=== PATIENT | male | born 1960 ===

== ENCOUNTER 2016-12-20 11:44 | Emergency (ER) | payer OTHER ==
[2016-12-20 12:06] VITALS: RESP 16; TEMP 99; O2SAT 99
[2016-12-20 12:46] LABS: BASO # 0.1 K/uL (0.0-0.2); BASO % 0.9 % (0.0-2.0); EOS % 0.4 % (0.0-4.0); HEMATOCRIT 40.9 % (35.0-51.0); LYMPH # 1.9 K/uL (1.0-4.3); MEAN CELL VOLUME 85.4 fl (80.0-94.0); MEAN CORPUSCULAR HEMOGLOBIN 29.2 pg (27.0-31.0); MEAN CORPUSCULAR HGB CONC 34.2 g/dL (33.0-37.0); MEAN PLATELET VOLUME 8.8 fl (7.2-11.7); MONO # 0.7 K/uL (0.0-0.8); MONO % 7.7 % (0.0-10.0); NEUT # 6.8 K/uL (1.8-7.0); NRBC % 0.1 % (0.0-0.0); RED CELL DISTRIBUTION WIDTH 13.2 % (11.5-14.5); WHITE BLOOD COUNT 9.6 K/uL (4.8-10.8)
[2016-12-20 12:58] LABS: ALB/GLOB RATIO 1.1 (1.0-2.1); ALKALINE PHOSPHATASE 81 U/L (38-126); ALT/SGPT 24 U/L (21-72); AST/SGOT 26 U/L (17-59); BILIRUBIN,TOTAL 0.3 mg/dl (0.2-1.3); BLOOD UREA NITROGEN 19 mg/dl (9-20); CALCIUM 9.1 mg/dL (8.4-10.2); CARBON DIOXIDE 25 mmol/L (22-30); CHLORIDE 106 mmol/L (98-107); GFR AFRICAN-AMERICAN > 60; GLUCOSE,RANDOM 86 mg/dL (75-110); POTASSIUM 3.9 MMOL/L (3.6-5.0); SODIUM 141 mmol/l (132-148)
[2016-12-20 13:15] LABS: RBC URINE 3 /hpf (0-3); URINE BACTERIA RARE (<OCC); URINE BILIRUBIN NEGATIVE (NEGATIVE); URINE BLOOD NEGATIVE (NEGATIVE); URINE COLOR YELLOW (YELLOW); URINE GLUCOSE (UA) NEG (Normal); URINE KETONE NEGATIVE (NEGATIVE); URINE LEUKOCYTE ESTERASE TRACE Leu/uL (Negative); URINE PROTEIN 100 mg/dL (NEGATIVE); URINE UROBILINOGEN 0.2-1.0 mg/dL (0.2-1.0); WBC URINE 5 /hpf (0-5)
--- NOTE | 2016-12-20 13:23 | RAD ---
HISTORY: Cough COMPARISON: No prior. TECHNIQUE: Chest PA and lateral FINDINGS: LUNGS: The lungs are well inflated and clear. No focal consolidation. PLEURA: No significant pleural effusion identified. No pneumothorax apparent. CARDIOVASCULAR: Normal. OSSEOUS STRUCTURES: No significant abnormalities. VISUALIZED UPPER ABDOMEN: Normal. OTHER FINDINGS: None. IMPRESSION: No active pulmonary disease.
--- NOTE | 2016-12-20 14:02 | ED PDOC ---
HPI: General Adult Time Seen by Provider: 12/20/16 12:09 Chief Complaint (Nursing): Cough, Cold, Congestion Chief Complaint (Provider): Cough, Congestion History Per: Patient History/Exam Limitations: no limitations Onset/Duration Of Symptoms: Days (past 2 days) Have you had recent travel within the past 21 days to any of the following countries: [place], [place], [place] or [place]?: No Current Symptoms Are (Timing): Still Present Additional Complaint(s): Jordan Salinas a 56 year old male presents to the ED complaining of cough and congestion associated with yellow sputum. Patient has high blood pressure but states that he has not taken his blood pressure medication in three days. He cannot remember the name of the medication he was prescribed but knows he should be taking it daily. The patient denies having any chest pain, headache, hemoptysis, fever, visual changes and palpitations Past Medical History Reviewed: Historical Data, Nursing Documentation, Vital Signs Vital Signs: Last Vital Signs Temp 99.0 F 12/20/16 12:03 Pulse 68 12/20/16 19:06 Resp 16 12/20/16 12:03 BP 197/112 H 12/20/16 14:16 Pulse Ox 99 12/20/16 19:06 - Medical History PMH: HTN - Family History Family History: States: No Known Family Hx - Social History Current smoker - smoking cessation education provided: No Alcohol: None - Home Medications Home Medications: Ambulatory Orders Medication Instructions Recorded Azithromycin [Zithromax] 250 mg PO DAILY #6 tab 12/20/16 Benzonatate [Tessalon Perle] 100 mg PO Q8 PRN #30 capsule 12/20/16 Enalapril Maleate [Vasotec] 1 tab PO DAILY #7 tab 12/20/16 - Allergies Allergies/Adverse Reactions: Allergies Allergy/AdvReac Type Severity Reaction Status Date / Time No Known Allergies Allergy Verified 12/20/16 12:03 Review of Systems Constitutional: Negative for: Fever ENT: Positive for: Nose Congestion Cardiovascular: Negative for: Chest Pain, Palpitations Respiratory: Positive for: Cough. Negative for: Hemoptysis Physical Exam - Reviewed Nursing Documentation Reviewed: Yes Vital Signs Reviewed: Yes - Physical Exam Appears: Positive for: Non-toxic, No Acute Distress Head Exam: Positive for: ATRAUMATIC, NORMOCEPHALIC Skin: Positive for: Normal Color, Warm, Dry Eye Exam: Positive for: Normal appearance ENT: Positive for: Nasal Congestion Neck: Positive for: Normal Cardiovascular/Chest: Positive for: Regular Rate, Rhythm, Chest Non Tender Respiratory: Positive for: Normal Breath Sounds Neurologic/Psych: Positive for: Alert, Oriented - Laboratory Results Result Diagrams: 12/20/16 12:41 12/20/16 12:41 - ECG ECG: Positive for: Interpreted By Me ECG Rhythm: Positive for: Sinus Rhythm (with LVH) Rate: 68 O2 Sat by Pulse Oximetry: 99 Pulse Ox Interpretation: Normal (RA) - Radiology X-Ray: Interpreted by Me (CXR) X-Ray Interpretation: No Acute Disease Medical Decision Making Medical Decision Makin:09 Initial impression: Cough and Congestion Initial Plan: * EKG * CMP * Troponin * CBC * CXR * 10mg Vasotec PO * Urinalysis * reevaluation Patient's blood pressure is notably elevated, recorded at 200/117. Ordered administration of Metoprolol 5mg IVP. Will observe and possibly recommend hospitalization for its control. 14:58 Patient has declined administration of recommended antihypertensive medication within the ED as well as further observation and is requesting to sign himself out AMA. Risks of doing so, including possible permanent injury/, have been explained to patient; of which he has expressed complete understanding. Patient is A&O x3, mini-mental status intact, and is capable of making informed decisions regarding his medical care. Will provide Rx for Zithromax, Tessalon Perles and Vasotec and advise to follow up with his PMD as soon as possible. Leaving Against Medical Advice (AMA): This patient is choosing to leave against medical advice. I have personally explained to the patient that choosing to do so may result in permanent bodily harm or . I have discussed at great length that without further evaluation and monitoring there may be unforeseen circumstances and/or deterioration causing permanent bodily harm or as a result of their choice. The patient has verbalized these risks back to the physician in laymans terms. The patient is alert, oriented, and shows the mental capacity to make clear decisions regarding the pts health care at this time. The patient continues to wish to leave against medical advice. In light of the patient's decision to leave AMA, follow-up has been arranged and the patient is aware of the importance of following up as instructed. The patient has been advised that they should return to the ED immediately if they change their mind at any time, or if their condition begins to change or worsen in any way. Scribe Attestation: Documented by Liliana Bullard training under Jo Packer, acting as a scribe for David Villafuerte PA-C. Provider Scribe Attestation: All medical record entries made by the Scribe were at my direction and personally dictated by me. I have reviewed the chart and agree that the record accurately reflects my personal performance of the history, physical exam, medical decision making, and the department course for this patient. I have also personally directed, reviewed, and agree with the discharge instructions and disposition. Disposition - Clinical Impression Clinical Impression: Cough, Hypertension - Patient ED Disposition Is Patient to be Admitted: No - Disposition Disposition: Routine/Home Disposition Time: 14:58 Condition: STABLE Additional Instructions: Follow up with your PMD tomorrow as previously discussed WITHOUT FAIL. Return to ED immediately without fail for any concerns or questions. Prescriptions: Azithromycin [Zithromax] 250 mg PO DAILY #6 tab Benzonatate [Tessalon Perle] 100 mg PO Q8 PRN #30 capsule PRN Reason: Cough Enalapril Maleate [Vasotec] 1 tab PO DAILY #7 tab Instructions: Acute Bronchitis (ED), Hypertension (ED), Against Medical Advice (ED) Print Language: [place]
[2016-12-20 14:17] VITALS: BP 197/112
[2016-12-20] MEDS ORDERED: Metoprolol 1 mg/ml Inj IVP STA (14:24)
[2016-12-20 19:06] VITALS: PULSE 68
--- NOTE | 2016-12-21 11:37 | CARD ---
APPROVED REPORT EKG Measurement Heart [id number] <Conclusion> Normal sinus rhythm Possible Left atrial enlargement Left ventricular hypertrophy Abnormal ECG
== END 2016-12-20 15:00 | disposition left against medical advice (07) ==
LOC: H.ER 11:44
DX: R05 Cough (principal); I10 Essential (primary) hypertension